=== PATIENT | male | born 1965 | race Caucasian/White ===

== ENCOUNTER 2018-03-18 07:55 | Emergency (ER) | payer SELFPAY ==
[~2018-03-18] VITALS: Ht 160 cm; Wt 59.1 kg
[2018-03-18 07:59] VITALS: BP 137/61
== END 2018-03-18 10:09 | disposition left against medical advice (07) ==
LOC: EMS 07:56
DX: Z53.21 Procedure and treatment not carried out due to patient leaving prior to being seen by health care provider (principal)
CPT/HCPCS: 93005

== ENCOUNTER 2020-12-04 19:48 | Emergency (ER) | payer OTHER ==
[~2020-12-04] VITALS: Ht 160 cm; Wt 56.8 kg
[2020-12-04 19:54] VITALS: BP 155/89
[2020-12-04] MEDS ORDERED: IBUPROFEN 600 MG TABLET PO ONE (21:00)
== END 2020-12-04 22:25 | disposition home or self-care (01) ==
LOC: EMS 19:50
DX: S46.912A Strain of unspecified muscle, fascia and tendon at shoulder and upper arm level, left arm, initial encounter (principal); V49.49XA Driver injured in collision with other motor vehicles in traffic accident, initial encounter; Y93.89 Activity, other specified; Y92.89 Other specified places as the place of occurrence of the external cause; Y99.8 Other external cause status
CPT/HCPCS: 71046; 99284